=== PATIENT | female | born 1995 | race Caucasian/White ===

== ENCOUNTER 2025-01-26 19:57 | Emergency (ER) | payer MEDICAID ==
[~2025-01-26] VITALS: Ht 167.6 cm; Wt 82.0 kg
[~2025-01-26 19:57] MED LIST: TRAZ-251 PO
[2025-01-26 20:11] VITALS: TEMP 36.8; O2SAT 99
[2025-01-26] MEDS ORDERED: SILV50CR31 TP (22:15)
[2025-01-26 23:24] VITALS: BP 117/60; PULSE 63; RESP 12; O2SAT 99
== END 2025-01-26 23:28 | disposition home or self-care (01) ==
LOC: ER 19:57
DX: T24.232A Burn of second degree of left lower leg, initial encounter (principal); X58.XXXA Exposure to other specified factors, initial encounter; Y93.89 Activity, other specified; Y92.89 Other specified places as the place of occurrence of the external cause; Y99.8 Other external cause status
CPT/HCPCS: 99283

== ENCOUNTER 2025-03-18 22:17 | Emergency (ER) | payer MEDICAID ==
[~2025-03-18] VITALS: Ht 167.6 cm; Wt 84.0 kg
[~2025-03-18 22:17] MED LIST changes: +SILV50CR31 TP
[2025-03-18 22:19] VITALS: O2SAT 99
[2025-03-18 22:59] LABS: BASOPHILS % 0.7 % (0.0-2.0); DIFFERENTIAL COMMENT 0; EOSINOPHILS % 4.4 % (0.0-5.0); HEMOGLOBIN. 10.3 g/dL (12.0-16.0); LYMPHOCYTES % 31.7 % (20.0-50.0); MEAN CORPUSCULAR HEMOGLOBIN 25.6 pg (28.0-32.0); MEAN CORPUSCULAR HGB CONC 32.3 g/dL (31.0-37.0); MEAN CORPUSCULAR VOLUME 79.3 fL (81.0-99.0); MEAN PLATELET VOLUME 8.2 fl (7.4-10.4); MONOCYTES % 5.4 % (2.0-8.0); NEUTROPHILS % 57.8 % (40.0-76.0); PLATELET 454 x1000/uL (130-400); RED BLOOD CELL COUNT 4.03 mill/uL (4.2-5.4); RED CELL DISTRIBUTION WIDTH 17.9 % (11.6-14.6); WHITE BLOOD COUNT 11.2 x1000/uL (4.5-11.0)
[2025-03-18 23:05] LABS: CHLORIDE 108 mEq/L (98-107); POTASSIUM 3.5 mEq/L (3.5-5.1); SODIUM 140 mEq/L (136-145)
[2025-03-18 23:06] LABS: CALCIUM 9.7 mg/dL (8.7-10.4); CARBON DIOXIDE 24 mEq/L (21-32)
[2025-03-18 23:08] LABS: INR 0.9; PROTHROMBIN TIME 10.2 sec (9.6-11.0)
[2025-03-18 23:11] LABS: CREATININE 0.8 mg/dL (0.6-1.0); GLUCOSE 98 mg/dL (70-105); HCG SCREEN NEGATIVE; UREA NITROGEN BLOOD 15 mg/dL (9-23)
[2025-03-18 23:13] LABS: ALANINE AMINOTRANSFERASE 15 IU/L (10-49); ALBUMIN 4.4 g/dL (3.2-4.8); ASPARTATE AMINOTRANSFERASE 19 IU/L (<34); BILIRUBIN DIRECT < 0.1 mg/dL (<=3.0); BILIRUBIN TOTAL 0.3 mg/dL (0.1-1.0); PROTEIN TOTAL 6.7 g/dL (6.0-8.3)
[2025-03-18 23:50] VITALS: BP 112/54; PULSE 72; RESP 18; TEMP 36.8; O2SAT 100
== END 2025-03-18 23:53 | disposition home or self-care (01) ==
LOC: ER 22:17
DX: S80.12XA Contusion of left lower leg, initial encounter (principal); S80.11XA Contusion of right lower leg, initial encounter; R58 Hemorrhage, not elsewhere classified; W19.XXXA Unspecified fall, initial encounter; Y93.89 Activity, other specified; Y92.89 Other specified places as the place of occurrence of the external cause; Y99.8 Other external cause status
CPT/HCPCS: 36415; 80048; 80076; 84703; 85025; 93970; 99284